=== PATIENT | female | born 1980 | race Caucasian/White ===

== ENCOUNTER → 2017-07-15 | Outpatient (CLI) | payer OTHER ==
[~2017-07-15] VITALS: Ht 158.8 cm; Wt 68.1 kg
[~2017-07-15] MED LIST: COLACE100 MG PO; DAILY VALUE1 EACH PO; ENDOCET 5-3251 EACH PO; IBUPROFEN800 MG PO; IRON325 M1 PO; LINZESS145 MCG PO; OMEPRAZOLE40 M1 PO; PRENATAL TABLE1 EAC3 PO
[2017-07-15 16:30] VITALS: BP 114/57
== END | disposition home or self-care (01) ==
LOC: IVINF 16:25
DX: Z34.83 Encounter for supervision of other normal pregnancy, third trimester (principal); Z3A.28 28 weeks gestation of pregnancy; Z67.41 Type O blood, Rh negative
CPT/HCPCS: 96372

== ENCOUNTER 2017-08-05 17:08 | Outpatient (CLI) | payer OTHER ==
[~2017-08-05] VITALS: Ht 160 cm; Wt 70.5 kg
[2017-08-05 17:28] VITALS: BP 115/59
[2017-08-05 18:30] VITALS: BP 116/60
[2017-08-05 19:35] LABS: CANDIDA DNA PROBE NEGATIVE; GARDNERELLA DNA PROBE POSITIVE; TRICHOMONAS DNA PROBE NEGATIVE
== END 2017-08-05 19:18 | disposition home or self-care (01) ==
LOC: LDRP-OP 17:08 → 2WEST 17:10
PROVIDERS: Obstetrics & Gynecology
DX: O47.03 False labor before 37 completed weeks of gestation, third trimester (principal); Z3A.31 31 weeks gestation of pregnancy; Z80.0 Family history of malignant neoplasm of digestive organs
CPT/HCPCS: 59025; 87086; 87480; 87510; 87660; G0378

== ENCOUNTER 2017-10-06 07:05 | Inpatient (IN) | payer OTHER ==
[~2017-10-06] VITALS: Ht 160 cm; Wt 75.0 kg
[2017-10-06] VITALS (26 sets, daily range): BP systolic 88–143; BP diastolic 51–86
[2017-10-06 07:53] LABS: BASOPHIL (%) 0.2 % (0-1); EOSINOPHIL (%) 0.7 % (0-5); EOSINOPHIL COUNT 0.1 K/uL (0-0.3); HEMATOCRIT 36.8 % (36.0-46.0); HEMOGLOBIN 13.7 G/DL (11.9-15.5); IMMATURE GRANULOCYTE (%) 0.4 % (0.0-0.7); LYMPHOCYTE (%) 21.2 % (15-42); LYMPHOCYTE COUNT 2.4 K/uL (1.0-2.8); MCH 36.2 PG (29.0-34.0); MCHC 37.2 G/DL (30.0-36.0); MCV 97.4 FL (83-99); MONOCYTE (%) 5.2 % (3-12); MONOCYTE COUNT 0.6 K/uL (0-0.8); NEUTROPHIL (%) 72.3 % (45-76); NEUTROPHIL COUNT 8.1 K/uL (1.8-6.4); PLATELET COUNT 216 K/uL (156-360); RBC DIS.WIDTH-CV 12.4 % (11.8-14.6); RBC DIS.WIDTH-SD 44.1 % (39-53); RED BLOOD COUNT 3.78 M/uL (3.80-5.20); WHITE BLOOD COUNT 11.2 K/uL (4.1-10.2)
[2017-10-06 08:11] LABS: AMPHETAMINE NEGATIVE (500 ng/mL); BARBITURATES NEGATIVE (200 ng/mL); BENZODIAZEPINES NEGATIVE (150 ng/mL); BUPRENORPHINE NEGATIVE (10 ng/mL); COCAINE NEGATIVE (150 ng/mL); METHADONE NEGATIVE (200 ng/mL); METHAMPHETAMINE NEGATIVE (500 ng/mL); OPIATES (MORPHINE) NEGATIVE (100 ng/mL); OXYCODONE NEGATIVE (100 ng/mL); PHENCYCLIDINE NEGATIVE (25 ng/mL); PROPOXYPHENE NEGATIVE (300 ng/mL); THC CANNABINOIDS NEGATIVE (50 ng/mL); TRICYCLIC ANTIDEPRESSANTS NEGATIVE (300 ng/mL)
[2017-10-06 10:33] LABS: TREPONEMA ANTIBODY NEGATIVE (NEGATIVE)
[2017-10-06] MEDS ORDERED: IBUPROFEN800 MG PO (17:36)
[2017-10-07 22:58] VITALS: BP 112/68
[2017-10-08 07:29] VITALS: BP 110/68
[2017-10-08 14:48] VITALS: BP 122/69
== END 2017-10-08 18:35 | disposition home or self-care (01) | DRG 775 ==
LOC: LDRP-OP 07:05 → 2WEST 07:06 → LDRP-OP 07:36 → 2WEST 17:06 → LDRP-OP 11-02 19:50
PROVIDERS: Obstetrics & Gynecology Gynecology
PROC: 10907ZC Drainage of Amniotic Fluid, Therapeutic from Products of Conception, Via Natural or Artificial Opening (ICD-10-PCS; principal; 2017-10-06)
PROC: 0HQ9XZZ Repair Perineum Skin, External Approach (ICD-10-PCS; principal; 2017-10-06)
PROC: 3E033VJ Introduction of Other Hormone into Peripheral Vein, Percutaneous Approach (ICD-10-PCS; principal; 2017-10-06)
PROC: 00HU33Z Insertion of Infusion Device into Spinal Canal, Percutaneous Approach (ICD-10-PCS; principal; 2017-10-06)
PROC: 3E0R3BZ Introduction of Anesthetic Agent into Spinal Canal, Percutaneous Approach (ICD-10-PCS; principal; 2017-10-06)
PROC: 10E0XZZ Delivery of Products of Conception, External Approach (ICD-10-PCS; principal; 2017-10-06)
DX: O70.0 First degree perineal laceration during delivery (principal); Z37.0 Single live birth; Z3A.40 40 weeks gestation of pregnancy; D64.9 Anemia, unspecified; O99.02 Anemia complicating childbirth
CPT/HCPCS: 85025; 86780; C1755; J3010; J7120; S0020